=== PATIENT | male | born 1980 | race Caucasian/White ===

== ENCOUNTER 2019-04-08 15:50 | Emergency (ER) | payer MEDICAID ==
[2019-04-08] MEDS ORDERED: KETOROLAC 60 MG/2 ML VIAL IM STA (16:23)
[2019-04-08] MEDS ORDERED: ONDANSETRON ODT 4 MG TABLET TL STA (16:23)
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
[2019-04-08] MEDS ORDERED: HYDROcod/ACETAM 5/325 MG TABLET PO STA (16:30)
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
[2019-04-08] MEDS ORDERED: oxyCODONE 5 MG TABLET PO STA (17:42)
[2019-04-08 18:30] VITALS: BP 124/58
[2019-04-08] MEDS ORDERED: oxyCODONE/ACET 5/325 Prepack 4 PO STA (18:38)
[2019-04-08] MEDS ORDERED: ONDANSETRON ODT 4 MG Prepack 2 TL PRN (18:39)
== END 2019-04-08 18:54 | disposition home or self-care (01) ==
LOC: ED 15:50
DX: S06.0X0A Concussion without loss of consciousness, initial encounter (principal); G44.319 Acute post-traumatic headache, not intractable; M54.5 Low back pain; Y04.2XXA Assault by strike against or bumped into by another person, initial encounter; Z87.820 Personal history of traumatic brain injury
CPT/HCPCS: 70450; 99284

== ENCOUNTER 2019-04-08 19:14 | Emergency (ER) | payer MEDICAID ==
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
[2019-04-08] MEDS ORDERED: DEXAMETHASONE 10 MG/ML VIAL PO STA (20:07)
[2019-04-08] MEDS ORDERED: CYCLOBENZAPRINE 10 MG TABLET PO STA (20:07)
[2019-04-08] MEDS ORDERED: CHERRY SYRUP 10 ML UDC PO ONE (20:07)
--- NOTE | 2019-04-08 21:12 | XRAY Report ---
Reason: low back pain, s/p fall 2 days ago Procedure Date: 04/08/2019 Accession Number: [id number] / [id number] Procedure: XR - Lumbar Spine 2 View CPT Code: FULL RESULT: EXAM: LUMBOSACRAL SPINE RADIOGRAPHY EXAM DATE: 04/08/2019 08:46 PM. CLINICAL HISTORY: Low back pain, s/p fall 2 days ago. COMPARISONS: None. TECHNIQUE: 3 views. FINDINGS: Alignment: Normal. No spondylolisthesis or scoliosis. Bones: Five [id number] lumbar vertebral bodies are present. No fractures or bone lesions. Disks: Normal. Disk heights are maintained. Facets: Bilateral facet arthropathy at L4-L5 and L5-S1. Suggestion of bilateral neural foraminal and spinal canal stenosis at L5-S1. Sacroiliac Joints: Unremarkable. Soft Tissues: Normal. The visualized bowel gas pattern is normal. IMPRESSION: No acute displaced fracture or malalignment. Degenerative changes, with suggestion of bilateral neural foraminal and spinal canal stenosis at L5-S1. RADIA
[2019-04-08] MEDS ORDERED: oxyCODONE 5 MG TABLET PO STA (21:19)
[2019-04-08 21:34] VITALS: BP 130/71
== END 2019-04-08 21:33 | disposition home or self-care (01) ==
LOC: ED 19:14
DX: M62.830 Muscle spasm of back (principal); M54.42 Lumbago with sciatica, left side; M54.41 Lumbago with sciatica, right side; M54.2 Cervicalgia; S06.0X0A Concussion without loss of consciousness, initial encounter; G44.319 Acute post-traumatic headache, not intractable; Y04.2XXA Assault by strike against or bumped into by another person, initial encounter; Z87.820 Personal history of traumatic brain injury
CPT/HCPCS: 70450; 72100; 99284; A9270; Q0162

== ENCOUNTER 2019-07-14 10:29 | Outpatient (CLI) | payer MEDICAID ==
[2019-07-14 11:27] LABS: BASOPHILS # (AUTO) 0.1 10^3/uL (0.0-0.1); BASOPHILS % (AUTO) 0.9 %; EOSINOPHILS # (AUTO) 0.4 10^3/uL (0.0-0.7); EOSINOPHILS % (AUTO) 5.3 %; HGB - HEMOGLOBIN 14.6 g/dL (14.0-18.0); LYMPHOCYTES # (AUTO) 1.5 10^3/uL (1.5-3.5); LYMPHOCYTES % (AUTO) 21.9 %; MEAN CORPUSCULAR HEMOGLOBIN 30.6 pg (27.0-31.0); MEAN CORPUSCULAR HGB CONC 32.9 g/dL (32.0-36.0); MEAN CORPUSCULAR VOLUME 93.1 fL (80.0-94.0); MEAN PLATELET VOLUME 9.8 fL (7.4-11.4); MONOCYTES # (AUTO) 0.5 10^3/uL (0.0-1.0); MONOCYTES % (AUTO) 7.2 %; NEUTROPHILS # (AUTO) 4.3 10^3/uL (1.5-6.6); NEUTROPHILS % (AUTO) 64.2 %; PLT - PLATELET COUNT 230 10^3/uL (130-450); RED BLOOD COUNT 4.77 10^6/uL (4.70-6.10); RED CELL DISTRIBUTION WIDTH 13.4 % (12.0-15.0); WHITE BLOOD COUNT 6.7 x10^3/uL (4.8-10.8)
[2019-07-14 11:45] LABS: ALBUMIN 4.5 g/dL (3.2-5.5); ALBUMIN/GLOBULIN RATIO 1.5 (1.0-2.2); ALKALINE PHOSPHATASE 50 IU/L (42-121); ALT ALANINE AMINOTRANSFERASE 28 IU/L (10-60); AST ASPARTATE AMINOTRANSFERASE 24 IU/L (10-42); BILIRUBIN,TOTAL 0.7 mg/dL (0.2-1.0); BUN - BLOOD UREA NITROGEN 15 mg/dL (6-20); CALCIUM 9.3 mg/dL (8.5-10.3); CARBON DIOXIDE - CO2 26 mmol/L (21-32); CHLORIDE 105 mmol/L (101-111); CREATININE 0.8 mg/dL (0.6-1.2); GFR - MDRD 108 (>89); GLUCOSE 103 mg/dL (70-100); SODIUM 140 mmol/L (135-145); TOTAL PROTEIN 7.5 g/dL (6.7-8.2); VALPROIC ACID (DEPAKOTE) 49.3 ug/mL
[2019-07-14 12:03] LABS: HB2 TOTAL 14.9 g/dL; HEMOGLOBIN A1C 0.54 g/dL; HEMOGLOBIN A1C % 5.5 % (4.6-6.2)
== END 2019-07-14 10:30 | disposition home or self-care (01) ==
LOC: LAB 10:29
PROVIDERS: ATTEND Psychiatry & Neurology Psychiatry
DX: Z79.899 Other long term (current) drug therapy (principal)
CPT/HCPCS: 36415; 80053; 80164; 83036; 85025

== ENCOUNTER 2021-11-12 09:52 | Outpatient (CLI) | payer MEDICAID ==
[2021-11-12 10:32] LABS: CHOL/HDL RATIO 4.7 (<5.0); CHOLESTEROL 231 mg/dL; HDL CHOLESTEROL 49 mg/dL; LDL CHOLESTEROL,CALCULATED 169 mg/dL; LDL/HDL RATIO 3.4 (<3.6); TRIGLYCERIDES 64 mg/dL; VLDL CHOLESTEROL 13 mg/dL
== END 2021-11-12 09:53 | disposition home or self-care (01) ==
LOC: LAB 09:52
PROVIDERS: ATTEND Family Medicine
DX: R07.9 Chest pain, unspecified (principal)
CPT/HCPCS: 36415; 80061; 83721; 84443